=== PATIENT | female | born 1960 | race Caucasian/White ===

== ENCOUNTER → 2017-03-01 | Outpatient (CLI) | payer OTHER ==
[2017-03-01 08:12] LABS: ALT 27 U/L (9-52); AST 22 U/L (14-36); Cholesterol 107 mg/dL (<200); HDL Cholesterol 38 mg/dL (40-60); Triglycerides 208 mg/dL (<150)
== END | disposition home or self-care (01) ==
LOC: LABWHC1 06:59
PROVIDERS: ATTEND Internal Medicine Interventional Cardiology
DX: E78.2 Mixed hyperlipidemia (principal)
CPT/HCPCS: 36415; 80061; 84450; 84460

== ENCOUNTER → 2020-02-25 | Outpatient (CLI) | payer OTHER ==
--- NOTE | 2020-02-25 10:52 | US ---
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 EXAM MEASUREMENTS: Liver Length: 15.5 cm Gallbladder Wall: 0.2 cm CBD: 0.4 cm Right Kidney: 10.6 x 3.8 x 4.7 cm Pancreas: Tail obscured by overlying bowel gas Liver: Increased attenuation, decreased visualization of vessels. This finding limits evaluation for hepatic masses. No focal hepatic mass seen on today's exam. Gallbladder: Evidence for sonographic Zaragoza's sign: no CBD: wnl Right Kidney: wnl IMPRESSION: Diffuse heterogeneity of the hepatic echotexture in keeping with this patient's history o f hepatocellular disease. No focal mass seen on today's examination.
== END | disposition home or self-care (01) ==
LOC: RADUSWWP 09:29
PROVIDERS: ATTEND Internal Medicine Infectious Disease
DX: B19.20 Unspecified viral hepatitis C without hepatic coma (principal)
CPT/HCPCS: 76705

== ENCOUNTER → 2020-10-18 | Outpatient (CLI) | payer OTHER ==
[2020-10-18 08:11] LABS: HCT 41.5 % (34.0-46.0); HGB 13.4 gm/dL (11.4-16.0); MCH 28.1 pg (25.0-35.0); MCHC 32.4 g/dL (31.0-37.0); MCV 86.7 fL (80.0-100.0); Mean Platelet Volume 7.5; Platelet Count 221 k/uL (150-450); RBC 4.79 m/uL (3.80-5.40); RDW 14.4 % (11.5-15.5); WBC 8.9 k/uL (3.8-10.6)
[2020-10-18 08:20] LABS: African American GFR (CKD) >90 (>60 ml/min/1.73 sqM); Anion Gap 7 mmol/L; Blood Urea Nitrogen 15 mg/dL (7-17); Carbon Dioxide 28 mmol/L (22-30); Chloride 102 mmol/L (98-107); Non-African American GFR(CKD) >90 (>60 ml/min/1.73 sqM); Potassium 4.1 mmol/L (3.5-5.1); Sodium 137 mmol/L (137-145)
== END | disposition home or self-care (01) ==
LOC: LABPAT 07:33
PROVIDERS: ATTEND Internal Medicine Interventional Cardiology
DX: Z01.818 Encounter for other preprocedural examination (principal); I25.10 Atherosclerotic heart disease of native coronary artery without angina pectoris
CPT/HCPCS: 36415; 80051; 82565; 84520; 85027

== ENCOUNTER 2020-11-01 06:05 | Day surgery (SDC) | payer OTHER ==
[2020-10-30 10:39] VITALS: BMI 27.6
[~2020-11-01 06:05] MED LIST: ALPRAZolam 0.25 MG TAB PO PRN; ALPRAZolam 0.5 MG TAB PO PRN; NITROGLYCERIN SL TABS 0.4 MG TAB SUBLINGUAL PRN; SODIUM CHLORIDE 0.9% 1,000 ML in EMPTY BAG 1 BAG IV ONE
[2020-11-01] MEDS ORDERED: ATORVASTATIN 80 MG TAB PO ONE (07:00)
[2020-11-01] MEDS ORDERED: ASPIRIN 325 MG TAB PO ONE (07:00)
[2020-11-01] MEDS ORDERED: LIDOCAINE 1% INJ 10MG/ML (20 ML MDV) ONE (07:14)
[2020-11-01] MEDS ORDERED: fentaNYL (PF) 50 MCG/ML 2 ML AMP ONE (07:14)
[2020-11-01] MEDS ORDERED: VERAPAMIL 2.5 MG/ML 2 ML AMP ONE (07:14)
[2020-11-01] MEDS ORDERED: HEPARIN SODIUM 1,000 UN/ML (10ML VL) ONE (07:15)
[2020-11-01] MEDS ORDERED: fentaNYL (PF) 50 MCG/ML 2 ML AMP IV ONE (07:51)
[2020-11-01] MEDS: LIDOCAINE 1% INJ 10MG/ML (20 ML MDV) SQ ONE ×2 (07:57→08:10)
[2020-11-01] MEDS ORDERED: BIVALIRUDIN 250 MG in SODIUM CHLORIDE 0.9% 50 ML IV ONE (08:20)
[2020-11-01] MEDS ORDERED: BIVALIRUDIN BOLUS 250 MG/50 ML IV ONE (08:20)
[2020-11-01] MEDS ORDERED: CLOPIDOGREL 75 MG TAB ONE (08:21)
[2020-11-01] MEDS ORDERED: CLOPIDOGREL 75 MG TAB PO ONE (08:23)
[2020-11-01] MEDS ORDERED: IOPAMIDOL-370 125ML BTL INJ ONE (08:30)
[2020-11-01] MEDS: NITROGLYCERIN 1000MCG/10ML SYRINGE INTRACORON ONE ×2 (08:31→08:57)
[2020-11-01] MEDS ORDERED: HYDROmorphone 1 MG/ML 1 ML SYRINGE ONE ×2 (08:34→08:55)
[2020-11-01] MEDS ORDERED: HYDROmorphone 1 MG/ML 1 ML SYRINGE IVP ONE ×2 (08:38→08:57)
[2020-11-01] MEDS ORDERED: IOPAMIDOL-250 100ML BTL INTRAARTER ONE (08:50)
[2020-11-01] MEDS ORDERED: IOPAMIDOL-370 50ML BTL INJ ONE (09:00)
[2020-11-01] MEDS ORDERED: ONDANSETRON 4 MG/2 ML VIAL ONE (09:12)
[2020-11-01] MEDS ORDERED: MAG HYDROX/AL HYDROX/SIMETH 30 ML CUP PO PRN (09:17)
[2020-11-01] MEDS ORDERED: RX INFO: IV CONTRAST WAS GIVEN 1 EACH MISC MISCELLANE PRN (09:17)
[2020-11-01] MEDS ORDERED: ATROPINE SULFATE 0.1 MG/ML 10ML SYRINGE IV PRN (09:17)
[2020-11-01] MEDS ORDERED: NITROGLYCERIN SL TABS 0.4 MG TAB SUBLINGUAL PRN (09:17)
[2020-11-01] MEDS ORDERED: ZOLPIDEM 5 MG TAB PO PRN (09:17)
[2020-11-01] MEDS ORDERED: SODIUM CHLORIDE 0.9% 1,000 ML IV SCH (09:30)
[2020-11-01 11:42] VITALS: RESP 16
[2020-11-01] MEDS ORDERED: ONDANSETRON 4 MG/2 ML VIAL IVP PRN (11:53)
[2020-11-01] MEDS ORDERED: ONDANSETRON 4 MG/2 ML VIAL IVP ONE (11:59)
--- NOTE | 2020-11-01 12:38 | CC ---
CARDIAC CATHETERIZATION REPORT Ms. Gillis is a 60-year-old female with known history of hypertension, hyperlipidemia, coronary artery disease, and peripheral vessel disease as well as chronic tobacco use, who recently has been complaining of progressive dyspnea and has underwent stress test that showed evidence of inducible ischemia. In view of that, recommendation made regarding cardiac catheterization. The procedures, risks, and complication were discussed with the patient who is in full understanding and agreement. PROCEDURE: Patient was brought to labor crew supervisor in a fasting semi-sedated state after receiving fentanyl and Benadryl. Attempts to cannulate the right radial artery were unsuccessful. Subsequently, using Xylocaine anesthesia and Seldinger technique, a 6-Indonesian sheath was introduced in the right femoral artery. Selective right and left coronary angiography performed 6-Indonesian 4 bend right and left Shelia catheter. Multiple views of the coronary artery including hemiaxial views obtained. Following that a 6-Indonesian tight pigtail catheter was introduced into the left ventricle and pressures were calculated. Following that, catheter were removed, images were reviewed. FLUOROSCOPY: There was significant calcification involving all the coronary arteries. LEFT MAIN: This is a large-sized vessel, bifurcating into left circumflex, left anterior descending artery. Left main coronary artery has no evidence of high-grade stenosis. LEFT ANTERIOR DESCENDING ARTERY: This is a large-sized vessel giving rise to a moderately sized diagonal branch in mid segment. The left anterior descending artery reaches toward the apex in the mid segment at the takeoff of the diagonal branch, there is a 95% to 99% stenosis involving the diagonal branch. The rest of the vessel has no high-grade stenosis. LEFT CIRCUMFLEX: This is a nondominant vessel, giving rise to 2 obtuse marginal branch. Prior to the takeoff of the second obtuse marginal branch, there is a 70%-80% stenosis without significant progression compared to 2015. RIGHT CORONARY ARTERY: This is a large dominant vessel, bifurcating into PDA and posterolateral segment and branches. The proximal mid and distal right coronary artery are stented. The stents are patent, there is mild 20% to 30% intimal restenoses without any evidence of high-grade stenosis. LEFT VENTRICULOGRAM: Left ventriculogram is not performed. HEMODYNAMICS: There was no gradient across the aortic valve. The left ventricular end- diastolic pressure was 4-6 mmHg. CONCLUSION: 1. Calcified coronary arteries. 2. Critical stenosis involving the mid LAD involving the first diagonal branch. 3. Significant disease in the mid left circumflex unchanged compared the prior images. 4. Mild to moderate in-stent restenosis of the right coronary artery. RECOMMENDATION: In view of finding anatomy, recommend proceeding with angioplasty and stenting of the LAD. The procedures, risks, and complication were discussed with the patient who is in full understanding and agreement. MMODL / IJN: [id number] /
--- NOTE | 2020-11-01 12:48 | LTR ---
DATE OF SERVICE: 11/01/2020 RE: Aliza Gillis Dear Dr. Bauer; I had the pleasure to perform cardiac catheterization on Ms. Gillis at [facility] on November 01, 2020 and a full copy of the procedure note will be forwarded to you. In brief, she was found to have significant obstructive disease involving the mid LAD, the left circumflex lesion did not progress compared to 2015 and based on those findings, she underwent successful stenting of the LAD. I am hopeful that this procedure will stabilize her status and thank you again for allowing me to participate in this patient's personal care. Please feel free to call for any questions. Sincerely yours, MD KEYSHAWN RossL / FERN: [id number] /
--- NOTE | 2020-11-01 12:48 | PTCA ---
PERCUTANEOUSTRANS CORORONARY ANGIOGRAPHY Mr. Gillis is a 60-year-old female with known history of coronary artery disease who had a recent abnormal myocardial perfusion imaging and symptoms of dyspnea on exertion, underwent cardiac catheterization, was found to have significant stenosis in the mid LAD. In view of that, recommendation regarding angioplasty and stenting, the procedures, risks, and complication were discussed with the patient who is in full understanding and agreement. PROCEDURE: A 6-Estonian FR4 guiding catheter in the system after cannulating the left main, a 0.014 balanced medium weight J-wire was advanced across the lesion, positioned in the distal LAD, subsequently 2.5 x 12 mm NC Trek balloon was advanced and two inflations at maximum of 10 atmospheres were done. Following that, the balloon was removed and another 0.014 balanced medium weight J-wire was advanced in the first diagonal branch and a 2.5 x 12 mm Trek balloon was advanced and 2 inflations at 8 atmospheres were done. Following that, the balloon was removed and a 2.75 x 18 mm Xience Regine stent was advanced, deployed and post-dilated at 16 atmospheres. After the last inflation, after appropriate wait the balloon and the guidewire was withdrawn back in the guiding catheter. Images were obtained repeated. Those images reveal stable successful stenting. At that point, the guiding catheter, the balloon and the guidewire were removed. The sheath was removed. Hemostasis was obtained with deployment of an Angio- Seal. There was no immediate complication. Patient is returned to her room in stable condition. Of note, the patient had chest discomfort that improved at the end of the procedure. She received Angiomax per protocol as well as oral loading dose off clopidogrel. RESULTS: Successful stenting of the mid LAD with reduction of stenosis from 95% to 0% with JUAN- 3 flow in the diagonal branch. RECOMMENDATION: Patient will be continued on aspirin, Plavix, beta bianca, RODNEY inhibitor and statin. The importance of dual antiplatelet treatment were discussed with the patient and her family and they are in full understanding and agreement. Duration of sedation is 65 minutes. MMODL / IJN: [id number] /
[2020-11-01] MEDS: azaTHIOprine 50 MG TAB PO SCH ×2 (17:13→21:24)
[2020-11-02 07:37] VITALS: BP 135/75; PULSE 71; TEMP 97.8
[2020-11-02 08:24] LABS: African American GFR (CKD) >90 (>60 ml/min/1.73 sqM); Anion Gap 5 mmol/L; Blood Urea Nitrogen 10 mg/dL (7-17); Calcium 8.9 mg/dL (8.4-10.2); Carbon Dioxide 29 mmol/L (22-30); Chloride 105 mmol/L (98-107); Glucose 133 mg/dL (74-99); Non-African American GFR(CKD) >90 (>60 ml/min/1.73 sqM); Potassium 4.2 mmol/L (3.5-5.1); Sodium 139 mmol/L (137-145)
[2020-11-02] MEDS: azaTHIOprine 50 MG TAB PO SCH (08:56)
[2020-11-02] MEDS ORDERED: CLOPIDOGREL 75 MG TAB PO SCH (09:00)
[2020-11-02] MEDS ORDERED: ATORVASTATIN 40 MG TAB PO SCH (09:00)
[2020-11-02] MEDS ORDERED: atenoloL 50 MG TAB PO SCH (09:00)
[2020-11-02] MEDS ORDERED: ISOSORBIDE MONONITRATE ER 30 MG TAB.ER.24H PO SCH (09:00)
[2020-11-02] MEDS ORDERED: ASPIRIN 81 MG PO SCH (09:00)
[2020-11-02] MEDS ORDERED: lisinopriL 5 MG TAB PO SCH (09:00)
--- NOTE | 2020-11-02 09:17 | PN ---
PROGRESS NOTE Ms. Gillis is a 60-year-old female with known history of coronary artery disease, history of peripheral vascular disease who presented with symptoms of progressive dyspnea and abnormal myocardial perfusion imaging, underwent cardiac catheterization, was found to have patent stent to the right coronary artery with significant disease in the mid LAD, underwent successful stenting of that vessel. She is doing well this morning. She denies any chest pain, her breathing has been stable. She denies any dizziness or palpitation. No nausea. She continued to be in sinus mechanism. Continues to be on aspirin once a day, Tenormin 25 mg daily, Lipitor 40 mg daily, Plavix 75 mg daily, Imuran 50 mg 3 times a day, isosorbide mononitrate 30 mg daily, lisinopril 5 mg daily. PHYSICAL EXAMINATION: Blood pressure 135/70 with a heart rate in 70s. LUNGS: Clear. HEART: Regular rate and rhythm, S1, S2. No S3. No rub. ABDOMEN: Soft, nontender, right groin no hematoma. EXTREMITIES: No edema. EKG revealed no acute changes. IMPRESSION: 1. Status post stenting of the LAD. 2. History of peripheral vascular disease. 3. Hypertension. 4. Hyperlipidemia. 5. Chronic tobacco use. RECOMMENDATION: Patient will be discharged home today and followed as an outpatient. MMODL / IJN: [id number] /
== END 2020-11-02 10:15 | disposition home or self-care (01) ==
LOC: CATHCVL 06:05 → 1SOBS 09:00 → CATHCVL 11-02 10:15
PROVIDERS: ATTEND Internal Medicine Interventional Cardiology
DX: I25.10 Atherosclerotic heart disease of native coronary artery without angina pectoris (principal); T82.855A Stenosis of coronary artery stent, initial encounter; I10 Essential (primary) hypertension; E78.2 Mixed hyperlipidemia; I73.9 Peripheral vascular disease, unspecified; F17.210 Nicotine dependence, cigarettes, uncomplicated; Z79.82 Long term (current) use of aspirin; Z79.899 Other long term (current) drug therapy; Z88.5 Allergy status to narcotic agent; Z95.5 Presence of coronary angioplasty implant and graft
CPT/HCPCS: 93458; 92921; 85347; 80048; C9600; C1769 ×3; C1760; C1887; C1725 ×2; C1894 ×2; C1874; J7500 ×2; J2405; J2001; J3010; J1170; J0583; Q9966; Q9967 ×2